=== PATIENT | female | born 1985 | race Caucasian/White ===

== ENCOUNTER 2025-04-17 09:24 | Outpatient (AMB) | payer OTHER, SELFPAY ==
[2025-04-17 09:38] VITALS: BMI 22.5
--- NOTE | 2025-04-17 09:38 | HO.SPINEOV ---
Vital Signs 04/17/25 09:38 Height 5 ft 5 in Weight 135 lb BMI 22.5 Intake Visit Reasons: lumbar radiculopathy Intake Note: Ms. Roberts is here today c/o low back pain and numbness of the left thigh. Equipment Service Technician Required: No Allergies ketamine Allergy (Severe, Verified 04/17/25 09:40) Unknown buprenorphine (From SUBOXONE) Allergy (Unknown, Verified 04/17/25 09:40) UNKNOWN naloxone (From SUBOXONE) Allergy (Unknown, Verified 04/17/25 09:40) UNKNOWN Physical Exam Vital Signs: BMI result Body Mass Index 22.5 Assessment & Plan Assessment & Plan (1) Back pain: Code(s): M54.9 - Dorsalgia, unspecified Category: Medical Plan Dear Rimma, Thank you for referring Ms Roberts to our office today. She is a very nice 40-year-old female who presents to the office today for evaluation of back pain. She reports that sometime last winter she was playing with her dog and felt abrupt onset of back pain that started shooting down into her lateral thigh. There was also associated of numbness on her lateral thigh. The pain was incapacitating for quite some time, she was having a hard time just getting out of bed going to the bathroom etc.. The severe pain down the left anterior thigh went away. Ultimately she was left with centralized back pain and numbness of her left thigh. She saw 1 of the surgeons at [facility] who told her that she could go in there and explore but could not promise anything. She wanted to seek out a 2nd opinion. In the interim she has also had a left L2 TFESI an epidural without any success. Currently she has just dealing with this by taking a leave and doing activity modifications. PMH: Bipolar, depression, thoracic outlet syndrome for which she had what sounds like an extensive reconstruction of her left arm and axillary region. She had blood clots and was on anticoagulants for years. Other than that no systemic disease reported. 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 Other than that the rest of her spine looks anatomical. Impression: 40-year-old female who has what sounds like a herniated disc at L2-3 on the left last winter when she was playing with her dog that left her with a radiculopathy that ultimately passed on its own, but she now she has residual centralized back pain that has been nonresponsive to conservative treatment including physical therapy injections etc.. She saw a neurosurgeon at [facility] who did not think surgery would be successful. I reviewed her imaging with Dr. Hook and he agrees, there is just a very small foraminal disc bulge at L2-3 on the left in the L2 foramen and in the absence of leg pain, doing the surgery strictly for centralized back pain would be unlikely to yield positive outcome, and would put her at risk for developing radiculopathy secondary to potential nerve injury at surgery. Therefore he agrees, does not think surgery would be beneficial. Thank you for allowing us to care for your patient. The total time spent with this visit with this patient was 45 minutes reviewing history, physical exam, lumbar imaging review, and implementation of treatment plan or further diagnostic testing Drew Hook MD,PhD [facility] Coding Level of Care Code New Pt Level 4 (25446) Diagnoses Back pain M54.9
--- OUTSIDE RECORDS SUMMARY | 2025-04-17 10:13 | XMS_ITS | Clinical Summary ---
Author Organization [facility] Address [address] [place] [address] [address] [place] [address] Care Team Providers Care Fire Chief Name Role Phone Unavailable Primary Care Provider Unavailabl e Social History Tobacco Use Types Packs/Day Years Used Date Smoking Tobacco: Never Assessed Comments Unknown Sex and Gender Information Value Date Recorded Sex Assigned at Female 10/15/2023 4:15 PM EST Legal Sex Female 2:59 PM EST Gender Identity Female 10/15/2023 4:15 PM EST Sexual Orientation Don't know 10/15/2023 4: 15 PM EST Plan of Treatment Health Maintenance Due Date Last Done Comments Depression Screening 1986 SDOH Screening 1986 Disability Screening 1986 Alcohol/Substance Use Screening 1998 Tobacco Screening 1998 Family Planning (PISQ) 2001 HPV Vaccines (1 - 3-dose series) 2001 DTaP/Tdap/Td Vaccines (1 - Tdap) 2005 Hepatitis B Vaccines (1 of 3 - 19+ 3-dose series) 2005 Pap Smear 2007 Cervical Cancer Screening 02/05/2016 HPV/Cotest 02/05/2016 COVID-19 Vaccine ( - 2023-2 5 season) 2024 Influenza Vaccine (#1) 2025 Zoster Vaccines (1 of 2) 02/05/2036 RSV Patients and Pa tients Aged 60 years or older (1 - 1-dose 75+ series) 2061 HIV Screening Completed 10/12/2023 Hepatitis C Screening Completed 10/12/2023 HIB Vaccines Aged Out No longer eligi ble based on patient's age to complete this topic Hepatitis A Vaccines Aged Out No long er eligible based on patient's age to complete this topic IPV Vaccines Aged Out No longer eligi ble based on patient's age to complete this topic Meningococcal B Vaccine Aged Out No l onger eligible based on patient's age to complete this topic Meningococcal Vaccine Aged Out No afia delisa eligible based on patient's age to complete this topic Pneumococcal Vaccine: Pediat rics (0 to 5 Years) and At-Risk Patients (6 to 49) Years Aged Out No longer eligi ble based on patient's age to complete this topic RSV under 20 months Aged Out No longe r eligible based on patient's age to complete this topic Rotavirus Vaccines Aged Out No longer eligible based on patient's age to complete this topic Procedures Procedure Name Priority Date/Time Associated Diagnosis Comments HEPATITIS C ANTIBODY ([facility]) Routine 10/12/2023 10:37 AM EST STI (sexually transmitted infection) Encounter for special screening examination for infectious or parasitic disease HIV ANTIBODY/ANTIGEN ([facility]) Routine 10/12/2023 10:37 AM EST STI (sexually transmitted infection) Encounter for special screening examination for infectious or parasitic disease from Last 3 Months or Most Recently Relevant to Health Maintenance Results * Hepatitis C Antibody ([facility]) (10/12/2023 10:37 AM EST) Hepatitis C Ab Nonreactive EXTERNAL LAB Blood 10/12/2023 10:3 7 AM EST us Amanda Zimmerman MD LAB BLOOD ORDERABLES Edited Resu lt - Final Performing Organization Address [facility] Co de Phone Number EXTERNAL LAB * HIV Ab/Ag ([facility]) (10/12/2023 10:37 AM EST) HIV Ag/Ab Nonreactive EXTERNAL LAB Blood 10/12/2023 10:3 7 AM EST us Amanda Zimmerman MD LAB BLOOD ORDERABLES Edited Resu lt - Final EXTERNAL LAB from Last 3 Months or Most Recently Relevant to Health Maintenance
== END 2025-04-17 10:41 | disposition home or self-care (01) ==
LOC: HO.HNS 09:24
PROVIDERS: PCP Internal Medicine; Referring Provider Physician Assistant; Visit Provider Physician Assistant
DX: M54.9 Dorsalgia, unspecified (principal)
CPT/HCPCS: 99204